=== PATIENT | male | born 1995 | race Caucasian/White ===

== ENCOUNTER 2016-10-17 12:01 | Emergency (ER) | payer MEDICAID ==
[~2016-10-17] VITALS: Ht 190.5 cm; Wt 77.1 kg
[2016-10-17 12:01] VITALS: BP 128/106
--- NOTE | 2016-10-17 12:37 | NUR ---
CALLED [facility], THEY WILL BE SENDING OVER A UNIT.
== END 2016-10-17 13:01 | disposition home or self-care (01) ==
LOC: ER 12:06 → EDBD 12:06 → ER 13:01
DX: S00.83XA Contusion of other part of head, initial encounter (principal); F31.9 Bipolar disorder, unspecified; F17.200 Nicotine dependence, unspecified, uncomplicated; Y04.8XXA Assault by other bodily force, initial encounter; Y93.89 Activity, other specified; Y92.89 Other specified places as the place of occurrence of the external cause; Y99.9 Unspecified external cause status
CPT/HCPCS: 99283; A4606; Z7610

== ENCOUNTER 2016-10-23 17:31 | Emergency (ER) | payer MEDICAID ==
[~2016-10-23] VITALS: Ht 190.5 cm; Wt 79.4 kg
[2016-10-23 17:48] VITALS: BP 148/83
== END 2016-10-23 18:16 | disposition home or self-care (01) ==
LOC: ER 17:40
DX: S00.83XA Contusion of other part of head, initial encounter (principal); F31.9 Bipolar disorder, unspecified; F17.200 Nicotine dependence, unspecified, uncomplicated; Y04.2XXA Assault by strike against or bumped into by another person, initial encounter; Y93.89 Activity, other specified; Y92.89 Other specified places as the place of occurrence of the external cause; Y99.9 Unspecified external cause status
CPT/HCPCS: 99281; A4606; Z7610; Z7502

== ENCOUNTER 2016-11-07 18:31 | Emergency (ER) | payer MEDICAID ==
[~2016-11-07] VITALS: Ht 190.5 cm; Wt 72.6 kg
[2016-11-07 18:56] VITALS: BP 151/83
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
--- NOTE | 2016-11-07 20:07 | NUR ---
Patient discharged to home in stable condition. Written and verbal after care instructions given. Patient verbalizes understanding of instruction. ambulatory with a steady gait
== END 2016-11-07 20:09 | disposition home or self-care (01) ==
LOC: ER 18:33
DX: S00.03XA Contusion of scalp, initial encounter (principal); F31.9 Bipolar disorder, unspecified; F17.200 Nicotine dependence, unspecified, uncomplicated; Y04.0XXA Assault by unarmed brawl or fight, initial encounter; Y92.89 Other specified places as the place of occurrence of the external cause; Y93.89 Activity, other specified; Y99.8 Other external cause status
CPT/HCPCS: 70450; 99284; A4606; Z7610